=== PATIENT | female | born 1990 | race Caucasian/White ===

== ENCOUNTER → 2016-05-24 14:30 | Observation (INO) ==
--- NOTE | 2016-05-24 15:26 | OB/GYN Progress Note ---
Date of Encounter: 05/24/16 Time of Encounter: 15:30 - Assessment and Plan (1) First in adolescent 16 years of age or older in third trimester Current Visit: Yes Status: Acute (2) 39 weeks gestation of Current Visit: Yes Status: Acute (3) False labor after 37 completed weeks of gestation Current Visit: Yes Status: Acute Subjective - Subjective Interval history: Patient is a 26-year-old 1 para 0 at 39-2/7 weeks who presented to labor and delivery complaining of vaginal spotting and contractions. Patient having contractions for the past 24 hours stating getting more comfortable. Upon arrival to labor and delivery patient was having irregular contractions and was 1 cm. The patient was allowed to get up and ambulate was placed on the control and observe for couple hours. She made no additional significant cervical change was to 1 cm head was low and she was then but not enough to justify keeping for delivery. Recommendation was to allow the patient to try labor at home and was scheduled for an induction in 3 days. If patient's labor became more uncomfortable with contractions every 2-3 minutes leaking of fluid or bleeding like. She is to come back. Patient is okay with this and is willing to go home. Antepartum ROS: contractions Objective - Exam FHR: category 1 FHR comments: heart tones in 140s reactive contractions are irregular every 3-5 minutes Abdomen: Present: gravid Cervical dilation: 1 Cervix effacement: 80 station: -1
== END | disposition home or self-care (01) ==
LOC: 1NENULAB
PROVIDERS: ADMIT Obstetrics & Gynecology; ATTEND Obstetrics & Gynecology

== ENCOUNTER 2016-05-26 22:00 | Inpatient (IN) ==
[2016-05-26] MEDS ORDERED: Ringers Solution, Lactated 1,000 ML IVC SCH (23:30)
[2016-05-26] MEDS ORDERED: Famotidine 20 MG/2 ML VIAL IVP PRN (23:30)
[2016-05-26] MEDS ORDERED: Naloxone 0.4 MG/ML INJ IVP PRN (23:30)
[2016-05-26 23:32] LABS: Basophils % 0.2 %; Eosinophils % 0.3 %; Hematocrit 34.5 % (35.3-44.9); Hemoglobin 10.9 g/dL (11.5-15.4); Immature Granulocytes % 0.5 % (0-4); Lymphocytes # 2.3 K/mcL (0.6-4.6); Mean Corpuscular HGB Conc 31.6 g/dL (31.6-35.5); Mean Corpuscular Hemoglobin 25.8 pg (28.0-33.3); Mean Corpuscular Volume 81.6 fL (83.0-100.0); Mean Platelet Volume 11.7 fL (9.4-12.4); Monocytes # 0.6 K/mcL (0.0-1.3); Monocytes % 5.4 %; Neutrophils # 8.4 K/mcL (1.6-8.9); Platelet Count 233 K/mcL (140-400); Red Blood Count 4.23 M/mcL (3.82-4.97); Red Cell Distribution Width 16.7 % (11.5-14.5); Segmented Neutrophils % 73.6 %
[2016-05-26] MEDS ORDERED: Ringers Solution, Lactated 1,000 ML ONE (23:41)
[2016-05-27] MEDS ORDERED: miSOPROStol 25 MCG TABLET VG SCH
--- NOTE | 2016-05-27 00:21 | OB/GYN History & Physical ---
Date of Encounter: 05/27/16 Time of Encounter: 00:20 Assessment and Plan (1) Elective induction of labor planned Current visit: Yes Status: Acute We will induce with a Padron catheter and Cytotec plan is to anticipate vaginal delivery (2) 39 weeks gestation of Current visit: No Status: Acute (3) First in adolescent 16 years of age or older in third trimester Current visit: No Status: Acute History of Present Illness HPI: Ms. Jasso is a 26 year old female 1 para 0 at 39-5/7 weeks who presented for induction of labor. Patient's been having contractions and bloody show for the past few days. We decided that we bring the patient this evening for Padron induction with Cytotec. Patient does have a large for gestational age approximately 3 weeks. The baby weighed 3232 g which is 80th percentile. Patient was not doing anything a couple days ago and we sent her home to come back tonight. She denies any leaking of fluid still having some bloody show and still having good movement. She was GBS negative Rh- Past Med Surg Social Fam HX - Past Medical History Medical history: no medical history Psychiatric history: anxiety - Past Surgical History Surgical History: no surgical history - Social History Smoking Status: Never smoker Smokeless Tobacco Status: No Alcohol use: none Drug use: none Occupational status: employed Current living situation: Home - Independent Activity Level: Independent ambulation Recent Out of Country Travel Within the Last 8 Weeks: No Exposure or Possible Exposure to Illness During Travel: No - Family History Mother Age: 47 Living Status: Still Living Hx Family Cardiac Disorders: Yes (HTN) Hx Family Respiratory Disorders: No Hx Family Cancer: No Hx Family GI Disorders: No Hx Family Endocrine Disorder: No Hx Family Neuromuscular Disorders: No Hx Family Neurologic Disorders: No Hx Family HEENT Disorders: No Hx Family Autoimmune Disorders: No - Additional Family History Additional family history: Family history is noncontributory Obstetrical History - Pregnancies : 1 Para: 0 Medications and Allergies Allergies No Known Allergies Allergy (Verified 01/24/16 14:47) Review of System OB All systems PM: reviewed and no additional remarkable complaints except as stated Exam - Constitutional Constitutional: well developed, well nourished, no acute distress, average body habitus - HEENT HEENT: PERRL - Neck Neck exam: full ROM - Lungs Respiratory exam: CTAB - Cardiovascular Cardiovascular exam: RRR - Abdomen Abdomen: Present: gravid - Cervix Dilation: 1 Effacement: 80 Station: -1 (Padron catheter placed within the cervix 30 mL balloon inflated and then 25 g of Cytotec placed in the posterior fornix) - Comments Comments: heart tones in the 140s reactive no contraction seen Results Result Diagrams: 05/26/16 23:21 Abnormal lab results WBC 11.5 K/mcL (4.3-11.1) H 05/26/16 23:21 Hgb 10.9 g/dL (11.5-15.4) L 05/26/16 23:21 Hct 34.5 % (35.3-44.9) L 05/26/16 23:21 MCV 81.6 fL (83.0-100.0) L 05/26/16 23:21 MCH 25.8 pg (28.0-33.3) L 05/26/16 23:21 RDW 16.7 % (11.5-14.5) H 05/26/16 23:21 All other labs normal. - VTE Reasons for not Prescribing Prophylaxis: Treatment not Indicated - Low risk for VTE
[2016-05-27] MEDS ORDERED: *HR* Nalbuphine 20 MG/ML AMPUL ONE (02:33)
[2016-05-27] MEDS ORDERED: *HR* Nalbuphine 20 MG/ML AMPUL IVP PRN (02:36)
[2016-05-27] MEDS ORDERED: *HR* FentaNYL (PF) 100 MCG/2 ML VIAL EP ONE (10:48)
[2016-05-27] MEDS ORDERED: Bupivacaine-MPF 0.25% 10 ML VIAL EP ONE (10:48)
[2016-05-27] MEDS ORDERED: *HR* FentaNYL (PF) 100 MCG/2 ML VIAL ONE ×2 (10:52→20:36)
[2016-05-27] MEDS ORDERED: Bupivacaine-MPF 0.25% 10 ML VIAL ONE (10:52)
[2016-05-27] MEDS ORDERED: Epidural Premix (fent/bupiv) 110 ML EP SCH (11:00)
[2016-05-27] MEDS ORDERED: Epidural Premix (fent/bupiv) 110 ML EP ONE ×2 (11:58→18:01)
--- NOTE | 2016-05-27 14:31 | Anesthesia Evaluation PreOp ---
Date of Encounter: 05/27/16 Time of Encounter: 11:00 - Past History Planned Operation: epidural Cardiac History: Other (history of palpitations, holter monitor showed pvc, nsr today) Pulmonary History: Former smoker (quit with , 1 pk yr history) CARDBOARD INSERTER History: Denies Any Significant HX Other Medical History: GERD Anesthesia History: No Prior Anesthetic Complications (teeth pulled, right face tumor removed) : Yes Test: Positive Alcohol Use: none Drug use: none Medications and Allergies Allergies No Known Allergies Allergy (Verified 01/24/16 14:47) - Meds/Allergy Pre-op Review Medications Reviewed: Yes Allergies Reviewed: Yes Beta Blockers on Current Med List: No Anesthesia Results - Labs 05/26/16 23:21 Anesthesia Exam 3 Vital Signs Time 1100 BP 128/71 Pulse 78 Resp 16 O2 Sat Height: 68 Weight: 245 NPO (# of Hours): clears Pain Scale: 4 Pain Scale Used: Numeric (1 - 10) - HEENT Pupil (Motor): Pupils equal Mallampati: II Teeth: Normal Oral Opening: Greater than 3 - CARDBOARD INSERTER LOC: Oriented CARDBOARD INSERTER Motor: Normal RUE, Normal LUE, Normal RLE, Normal LLE, Normal Face CARDBOARD INSERTER Sensory: Normal: RUE, LUE, RLE, LLE, Face - Cardiac Rhythm: Regular Murmur: None JVD: No Carotid Bruit: No - Pulmonary Breath Sounds: bilateral Clear Respiratory Effort: Symmetrical Anesthesia Assess/Plan ASA Score: 2 Modified [place] Scale for Level of Consciousness: Cooperative, oriented, and tranquil Anesthetic Plan: Regional Monitoring Plan: Standard Monitors Recovery Plan: Other
--- NOTE | 2016-05-27 14:44 | Anesthesia Procedures ---
Date of Encounter: 05/27/16 Time of Encounter: 11:15 Procedures: Anesthesia - Epidural/Spinal Patient ID/Chart reviewed: Yes Patient examined: Yes OB Eval: Gestational age: 39 weeks 5 days OB Eval: : 1 OB Eval: Hx Para: 0 OB Eval: Dilated at (cm): 4 OB Eval: Contractions: Non-stressed pattern Consent Obtained: Yes Supplemental Oxygen: None/Room Air Site Prep: Aseptic Technique, Sterile prep and drape, Povidone-Iodine 1% Patient position: upright Local Anesthetic: Lidocaine 1% Amount of Local Anesthetic used: 7 Touhy Needle Gauge: 18 Touhy Needle Depth (cm): 8 Catheter Depth at Skin (cm): 15 Test Dose (1.5% Lido + Epi): Volume given (mls): 3 Test Dose Result: Negative Loading Dose: 0.25% Marcaine (mls): 6 Loading Dose: Fentanyl (mcg): 100 Loading Dose: Other: 4 ml saline Loading Dose Administered: Thru Catheter Infusion Med: 0.125% Bupivacaine w/ 2 mcg/ml Fentanyl Infusion Rate (mls/hr): [address]: Tegaderm, Tape Interspace Used: L3-L4 Loss of Resistance (TASHA): Yes (air) Blood: No CSF: No Paresthesia: No Procedure: 3 Vital Signs Time 1114 start 1124 1st cath 1133 2nd cath 1145 test 1152 bolus 1207 finish BP 128/81 118/75 121/83 123/80 133/58 120/66 Pulse 96 75 84 80 83 80 Resp 16 16 16 16 16 16 O2 Sat 100 100 100 100 100 100 patient placed sitting, monitors on, L4/l5 prepped with betadine, 1% lidocaine at skin 4 ml used, epidural needle advanced using tasha technique with air, epidural space encountered, 1124 cath threaded, blood present, removed, 1133 epidural needle placed again at same interspace, and advanced to epidural space , cath placed with blood present again, removed, L3/L4 interspace used, 1% lidocaine 3 ml used, epidural needle advanced using tasha technique, epidural space encountered at 8 cm, cath placed to 15 cm at skin, test dose was negative , bolus dose given in 4 increments over 10 minutes, vs stable, pump started at 15 ml per hour, patient comfortable.
--- NOTE | 2016-05-27 14:50 | OB Labor Progress Note ---
Date of Encounter: 05/27/16 Time of Encounter: 13:42 Labor Progress Note - Subjective Subjective: Pt comfortable with epidural - Cervix Cervix: 5/80/-1 - Heart Tones Heart Tones: Category I - [place]: irregular - Interventions Interventions: AROM for small amount clear fluid - Plan Plan: Continue to monitor. Will augment with pitocin if needed.
[2016-05-27] MEDS ORDERED: Oxytocin 20 units/ LR 1000 mL 20 UNIT/1,000 ML BAG IVC SCH (15:00)
--- NOTE | 2016-05-27 18:56 | OB Labor Progress Note ---
Date of Encounter: 05/27/16 Time of Encounter: 18:54 Labor Progress Note - Heart Tones Heart Tones: RNST - Interventions Interventions: IUPC placed - Plan Plan: Expect
[2016-05-27] MEDS ORDERED: Lidocaine/EPI 1:200k 2% PF 20 ML VIAL ONE (20:36)
[2016-05-27] MEDS ORDERED: Acetaminophen 325 MG TABLET PO PRN (20:50)
--- NOTE | 2016-05-27 21:04 | Anesthesia Progress Note ---
Date of Encounter: 05/27/16 Time of Encounter: 20:50 Anesthesia Note - Note Note: 05/27/16 21:04 3 Vital Signs Time 2049 2053 2057 BP 133/83 136/84 124/77 Pulse 88 88 86 Resp 16 16 16 O2 Sat 2049 patient complaining of right sided back pain, epidural level at t10 region at present, pump running at 15 ml per hour, bolus dose of 2% lidocaine with epi 5 ml given with 100 mcg fentanyl in 3 incremental doses.pain 2106 patient states pain is gone
[2016-05-27] MEDS ORDERED: Ampicillin 2 GM in 0.9 % Sodium Chloride Mini Bag 100 ML IVPB ONE (23:01)
--- NOTE | 2016-05-27 23:16 | OB Labor Progress Note ---
Date of Encounter: 05/27/16 Time of Encounter: 23:14 Labor Progress Note - Subjective Subjective: Pt comfortable with Epidrual. Feels some pressure. - Vital Signs Vital Signs: Temp 101.2, now 99.5 s/p Tylenol. - Cervix Cervix: 8/90/0to -1 - Heart Tones Heart Tones: 170's with fair BTVB and early decels. - [place]: uc's q 2 min - Plan Plan: Pt making progress, membranes ruptered at 13:42. She does have fever and c/o congestion. Can't really tell if abd is tender b/c of epidrual. D/w pt concern over possible chorio and will start Amp and Gent. Given progress will hold off on at this time unless condition would appear to deteriorate. Questions answered.
[2016-05-27] MEDS ORDERED: SODIUM CHLORIDE 0.9% IVPB SCH (23:45)
[2016-05-27] MEDS ORDERED: GENTAMICIN IVPB SCH (23:45)
[2016-05-28] MEDS ORDERED: Ampicillin 1,000 MG in 0.9 % Sodium Chloride Mini Bag 100 ML IVPB SCH
[2016-05-28] MEDS ORDERED: GENTAMICIN IVPB SCH
[2016-05-28] MEDS ORDERED: SODIUM CHLORIDE 0.9% IVPB SCH
[2016-05-28] MEDS ORDERED: Epidural Premix (fent/bupiv) 110 ML EP ONE (00:46)
[2016-05-28] MEDS ORDERED: Rho Immune Globulin 1,500 UNIT SYRINGE IM PRN (01:50)
[2016-05-28] MEDS ORDERED: Acetaminophen 325 MG TABLET PO PRN (01:50)
[2016-05-28] MEDS ORDERED: Measles/Mumps/Rubella Vacc 0.5 ML VIAL SQ PRN (01:50)
[2016-05-28] MEDS ORDERED: Oxytocin 20 units/ LR 1000 mL 20 UNIT/1,000 ML BAG IVC ONE (01:50)
--- NOTE | 2016-05-28 01:50 | OB/GYN Procedure Note ---
Delivery - Delivery Date: 05/28/16 Provider: Eduardo Cyr Intrapartum events: febrile- temp >100.3 Delivery induction: AROM Delivery monitor: external FHT, internal uterine Anesthesia: epidural Estimated Blood Loss: 200 - Infant (s) Infant A Infant Delivery Date: 05/28/16 Infant Delivery Time: 01:30 Presentation: vertex Position: ALEXIS Route of delivery: Gender: Male Viability: Viable Pounds: 8 Ounces: 8 at 1 minute: 8 at 5 mins: 9 Shoulder Dystocia: not encountered Specimens collected: cord blood Placenta: spontaneous Cord: 3 umbilical vessels - Repair Episiotomy: none Laceration Description: Perineal - 2nd Degree - Complications Delivery complications: none - Disposition Mom disposition: stable in LDR [place] disposition: stable in LDR - Comments Comments: Pt s/p of liveborn male without incident. Pt did receive Ampicllin and Gentamycin intrapartum of fever to 101.5
[2016-05-28] MEDS ORDERED: Oxytocin 20 units/ LR 1000 mL 20 UNIT/1,000 ML BAG IV SCH (02:00)
[2016-05-28] MEDS: Ibuprofen 600 MG TABLET PO PRN ×3 (04:19→19:49)
[2016-05-28 04:33] LABS: Basophils % 0.1 %; Hematocrit 30.4 % (35.3-44.9); Hemoglobin 9.6 g/dL (11.5-15.4); Immature Granulocytes % 0.7 % (0-4); Lymphocytes % 6.4 %; Mean Corpuscular HGB Conc 31.6 g/dL (31.6-35.5); Mean Corpuscular Hemoglobin 25.4 pg (28.0-33.3); Mean Corpuscular Volume 80.4 fL (83.0-100.0); Monocytes # 0.9 K/mcL (0.0-1.3); Neutrophils # 13.2 K/mcL (1.6-8.9); Platelet Count 192 K/mcL (140-400); Red Blood Count 3.78 M/mcL (3.82-4.97); Red Cell Distribution Width 16.6 % (11.5-14.5); Segmented Neutrophils % 86.8 %
[2016-05-28] MEDS: Prenatal Vit/FA 1 EACH TABLET PO SCH (08:34)
[2016-05-29] MEDS: Ibuprofen 600 MG TABLET PO PRN ×2 (06:38→20:31)
--- NOTE | 2016-05-29 08:22 | OB/GYN Progress Note ---
Date of Encounter: 05/29/16 Time of Encounter: 08:20 - Assessment and Plan (1) (spontaneous vaginal delivery) Current Visit: Yes Status: Acute patient meeting post day 1 milestones patient reports dizzy ambulation repeat CBC anticipate discharge home post day 2. (2) Normal breast feeding Current Visit: Yes Status: Acute Discharge home with breast pump (3) anemia Current Visit: Yes Status: Acute Hemoglobin 9.6, repeat CBC Subjective - Subjective Patient reports: appetite normal, dizzy ambulation, pain well controlled, nauseated [place]: doing well, nursing well Objective - Latest Vital Signs Latest vital signs: Vital Signs Temp Pulse Resp BP Pulse Ox 05/28/16 20:00 97.5 F L 92 16 119/76 98 05/28/16 16:35 18 05/28/16 09:16 97.6 F 74 16 106/73 05/28/16 08:30 14 Intake and Output 05/28/16 05/29/16 05/29/16 23:59 07:59 15:59 Intake Total 400 / 400 Balance 400 / 400 Intake: Oral 400 / 400 Other: # Urine Diapers 2 # Bowel Movements 1 Weight 109.769 kg Patient Weight 05/29/16 23:59 Weight 109.769 kg - Exam Lungs: bilateral: normal Chest: Normal S1, Normal S2 Extremities: Present: edema (1+, bilateral, no erythema) Abdomen: Present: soft Uterus: Present: firm. Absent: tenderness Uterus Position: 2 Fingers Below Umbilicus - Labs Labs: Laboratory Results - last 24 hr 05/28/16 02:19 Baby's Blood Type A RH NEGATIVE Mother's Blood Type A RH NEGATIVE Rhogam Indicated NO
[2016-05-29] MEDS: Prenatal Vit/FA 1 EACH TABLET PO SCH (08:39)
[2016-05-29 10:05] LABS: Basophils % 0.2 %; Eosinophils # 0.1 K/mcL (0.0-0.6); Eosinophils % 0.6 %; Hematocrit 27.9 % (35.3-44.9); Hemoglobin 8.9 g/dL (11.5-15.4); Immature Granulocytes % 0.6 % (0-4); Lymphocytes # 2.5 K/mcL (0.6-4.6); Lymphocytes % 21.3 %; Mean Corpuscular HGB Conc 31.9 g/dL (31.6-35.5); Mean Corpuscular Hemoglobin 26.6 pg (28.0-33.3); Mean Corpuscular Volume 83.5 fL (83.0-100.0); Mean Platelet Volume 11.4 fL (9.4-12.4); Monocytes # 0.6 K/mcL (0.0-1.3); Monocytes % 5.2 %; Neutrophils # 8.5 K/mcL (1.6-8.9); Platelet Count 182 K/mcL (140-400); Red Blood Count 3.34 M/mcL (3.82-4.97); Red Cell Distribution Width 17.2 % (11.5-14.5); Segmented Neutrophils % 72.1 %
[2016-05-30] MEDS: Prenatal Vit/FA 1 EACH TABLET PO SCH (08:07)
[2016-05-30] MEDS: Ibuprofen 600 MG TABLET PO PRN (08:07)
[2016-05-30 08:53] VITALS: BP 123/81
--- NOTE | 2016-05-30 09:07 | Discharge Summary ---
Date of Encounter: 05/30/16 Time of Encounter: 09:04 - Discharge Diagnosis (1) (spontaneous vaginal delivery) Priority: Primary Status: Acute (2) Normal breast feeding Priority: Secondary Status: Acute (3) anemia Priority: Secondary Status: Acute - Discharge Medications Prescriptions: Ibuprofen [Motrin] 600 mg PO Q6HR PRN #60 tablet PRN Reason: Mild Pain (1-3) Docusate [Colace] 100 mg PO BID #60 capsule Ferrous Sulfate 325 mg PO DAILY #30 tablet Home Medications: Breast Pump [BREAST PUMP] 1 each .ROUTE AD #1 each 05/30/16 [Rx] Docusate [Colace] 100 mg PO BID #60 capsule 05/30/16 [Rx] Ferrous Sulfate 325 mg PO DAILY #30 tablet 05/30/16 [Rx] Ibuprofen [Motrin] 600 mg PO Q6HR PRN #60 tablet 05/30/16 [Rx] Vit/FA 1 each PO DAILY tablet 05/30/16 [Rx] Allergies/Adverse Reactions: Allergies No Known Allergies Allergy (Verified 01/24/16 14:47) Data Procedures and tests throughout hospitalization: Laboratory Tests 05/26/16 05/28/16 05/28/16 23:21 02:19 04:04 WBC 11.5 H 15.3 H RBC 4.23 3.78 L Hgb 10.9 L 9.6 L Hct 34.5 L 30.4 L MCV 81.6 L 80.4 L MCH 25.8 L 25.4 L MCHC 31.6 31.6 RDW 16.7 H 16.6 H Plt Count 233 192 MPV 11.7 12.0 Immature Gran % 0.5 0.7 Seg Neutrophils % 73.6 86.8 Lymphocytes % 20.0 6.4 Monocytes % 5.4 6.0 Eosinophils % 0.3 0.0 Basophils % 0.2 0.1 Neutrophils # 8.4 13.2 H Lymphocytes # 2.3 1.0 Monocytes # 0.6 0.9 Eosinophils # 0.0 0.0 Basophils # 0.0 0.0 Baby's Blood Type A RH NEGATIVE Mother's Blood Type A RH NEGATIVE Rhogam Indicated NO 05/29/16 09:57 WBC 11.8 H RBC 3.34 L Hgb 8.9 L Hct 27.9 L MCV 83.5 MCH 26.6 L MCHC 31.9 RDW 17.2 H Plt Count 182 MPV 11.4 Immature Gran % 0.6 Seg Neutrophils % 72.1 Lymphocytes % 21.3 Monocytes % 5.2 Eosinophils % 0.6 Basophils % 0.2 Neutrophils # 8.5 Lymphocytes # 2.5 Monocytes # 0.6 Eosinophils # 0.1 Basophils # 0.0 Baby's Blood Type Mother's Blood Type Rhogam Indicated Labs on day of discharge: Labs from last 24 hours 05/29/16 09:57 WBC 11.8 H RBC 3.34 L Hgb 8.9 L Hct 27.9 L MCV 83.5 MCH 26.6 L MCHC 31.9 RDW 17.2 H Plt Count 182 MPV 11.4 Immature Gran % 0.6 Seg Neutrophils % 72.1 Lymphocytes % 21.3 Monocytes % 5.2 Eosinophils % 0.6 Basophils % 0.2 Neutrophils # 8.5 Lymphocytes # 2.5 Monocytes # 0.6 Eosinophils # 0.1 Basophils # 0.0 Date of admission: 05/26/16 22:00 Primary care physician: PCP [facility] Consults: 05/28/16 01:51 Consult to Online Journalist [CONS] Routine Comment: Vaginal delivery, consult needed Discharging clinician: Rebekah Ugarte Anticipated date of discharge: 05/30/16 - Patient Status Disposition: Home, Self-Care Condition: Good Functional capacity at discharge: independent ambulation Overall status at discharge: patient is progressing back to baseline - Discharge Instructions Follow Up With: [facility],PCP [Primary Care Provider] - Eduardo Cyr MD [Partnered Physician] - - Diet and Activity Activity: increase activity as tolerated Diet: advance to your usual diet Hospital Course Reason for admission: induction of labor Delivery: Episiotomy: none Laceration: 2nd degree Other procedures: none complications: none Discharge diagnosis: IUP at term delivered baby: male Hospital course: - Delivery Date: 05/28/16 Provider: Eduardo Cyr Intrapartum events: febrile- temp >100.3 Delivery induction: AROM Delivery monitor: external FHT, internal uterine Anesthesia: epidural Estimated Blood Loss: 200 - Infant (s) A Infant Delivery Date: 05/28/16 Delivery Time: 01:30 Presentation: vertex Position: ALEXIS Route of delivery: Gender: Male Viability: Viable Pounds: 8 Ounces: 8 at 1 minute: 8 at 5 mins: 9 Shoulder Dystocia: not encountered Specimens collected: cord blood Placenta: spontaneous Cord: 3 umbilical vessels - Repair Episiotomy: none Laceration Description: Perineal - 2nd Degree - Complications Delivery complications: none - Disposition Mom disposition: home PPD#1 [place] disposition: home with mother, Time Attestation: Total time spent providing and/or coordinating discharge services: Time Spent: Less than 30 minutes Exam - Constitutional Vitals: Temp Pulse Resp BP Pulse Ox 97.6 F 58 16 123/81 98 05/30/16 08:52 05/30/16 08:52 05/30/16 08:52 05/30/16 08:52 05/29/16 20:28 General appearance IM: A&O X 3, pleasant, no acute distress - Respiratory Respiratory exam: Present: CTAB - Cardiovascular Cardiovascular exam IM: Present: RRR, +S1, +S2 - GI/Abdominal GI/Abdominal exam IM: soft - Rectal Rectal exam: deferred - Uterine Tone: Firm Uterus Position: 1 Finger Below Umbilicus - Extremities Exam Extremities exam IM: Present: pedal edema (mild bilaterally) - Neurological Exam Neurological exam: normal gait, oriented X3 - Psychiatric Additional comments: reports good mood
== END 2016-05-30 13:00 | disposition home or self-care (01) | DRG 560 ==
LOC: 1NENULAB 22:00 → 1NENUOBS 05-28 03:32
PROVIDERS: ADMIT Obstetrics & Gynecology; ATTEND Obstetrics & Gynecology

== ENCOUNTER 2019-02-15 18:29 | Observation (INO) ==
[2019-02-15 19:23] LABS: Basophils % 0.5 %; Eosinophils # 0.1 K/mcL (0.0-0.6); Eosinophils % 0.9 %; Hemoglobin 13.9 g/dL (11.5-15.4); Immature Granulocytes % 0.5 % (0-4); Lymphocytes # 1.7 K/mcL (0.6-4.6); Lymphocytes % 19.5 %; Mean Corpuscular HGB Conc 32.3 g/dL (31.6-35.5); Mean Corpuscular Volume 89.6 fL (83.0-100.0); Mean Platelet Volume 10.1 fL (9.4-12.4); Monocytes # 0.7 K/mcL (0.0-1.3); Monocytes % 8.6 %; Platelet Count 286 K/mcL (140-400); Red Cell Distribution Width 12.8 % (11.5-14.5); White Blood Count 8.5 K/mcL (4.3-11.1)
[2019-02-15] MEDS ORDERED: Morphine Sulfate 2 MG/ML SYRINGE IVP ONE (19:34)
[2019-02-15] MEDS ORDERED: Ondansetron 4 MG/2 ML VIAL IVP ONE (19:35)
[2019-02-15] MEDS ORDERED: Isovue-370 500 ML BOTTLE IVP ONE (19:36)
[2019-02-15 19:44] LABS: Alanine Aminotransferase 26 Units/L (7-52); Albumin/Globulin Ratio 1.8 (1.1-2.2); Alkaline Phosphatase 48 Units/L (34-104); Amylase 24 Units/L (29-103); Aspartate Amino Transferase 18 Units/L (13-39); BUN/Creatinine Ratio 13 (6-26); Bilirubin,Indirect 0.4 mg/dL (0.0-1.0); Bilirubin,Total 0.4 mg/dL (0.3-1.0); Blood Urea Nitrogen 13 mg/dL (6-20); Calcium 9.7 mg/dL (8.6-10.3); Carbon Dioxide 25 mEq/L (23-29); Chloride 103 mEq/L (98-107); Globulin 2.8 g/dL (2.4-3.5); Glucose 102 mg/dL (70-105); Lipase 30 Units/L (11-82); Osmolality,Calculated 288 (280-300); Potassium 4.1 mEq/L (3.5-5.1); Sodium 139 mEq/L (136-145); Total Protein 7.8 g/dL (6.4-8.9); eGFR For African Americans > 60 (> 60); eGFR For Non-African Americans > 60 (> 60)
[2019-02-15 20:10] LABS: Bilirubin,Urine Negative (Negative); Blood,Urine Negative (Negative); Clarity,Urine Clear (Clear); Color,Urine Yellow (Yellow); Glucose,Urine (UA) Normal (Normal); Ketones,Urine Negative (Negative); Leukocyte Esterase,Urine Negative (Negative); Nitrite,Urine Negative (Negative); Protein,Urine Negative (Neg-Trace); Specific Gravity,Urine 1.015 (1.010-1.025); Urobilinogen,Urine Normal (Normal)
[2019-02-16] MEDS ORDERED: *HR* OxyCODONE/APAP 10/325 TABLET PO PRN (00:53)
[2019-02-16] MEDS ORDERED: 0.9 % Sodium Chloride 1,000 ML IVC SCH (01:00)
[2019-02-16] MEDS: Ondansetron 4 MG/2 ML VIAL IVP PRN ×2 (01:29→07:26)
[2019-02-16] MEDS: Piperacillin/Tazobactam 3.375 GM in 0.9 % Sodium Chloride Mini Bag 100 ML IVPB SCH ×3 (01:32→17:07)
[2019-02-16 06:01] LABS: Basophils % 0.2 %; Eosinophils % 0.5 %; Hematocrit 41.2 % (35.3-44.9); Immature Granulocytes % 0.4 % (0-4); Lymphocytes # 0.9 K/mcL (0.6-4.6); Lymphocytes % 11.5 %; Mean Corpuscular Hemoglobin 29.1 pg (28.0-33.3); Mean Corpuscular Volume 85.7 fL (83.0-100.0); Mean Platelet Volume 9.7 fL (9.4-12.4); Monocytes # 0.5 K/mcL (0.0-1.3); Monocytes % 6.7 %; Neutrophils # 6.5 K/mcL (1.6-8.9); Platelet Count 251 K/mcL (140-400); Red Blood Count 4.81 M/mcL (3.82-4.97); Red Cell Distribution Width 13.1 % (11.5-14.5); Segmented Neutrophils % 80.7 %
[2019-02-16 15:29] VITALS: BP 116/80
[2019-02-16] MEDS ORDERED: Bupivacaine/EPI 1:200k 0.5%PF 30 ML VIAL ONE (15:45)
== END 2019-02-16 17:07 | disposition left against medical advice (07) ==
LOC: 3ANU 18:29 → EMEROOARM 18:29 → 3ANU 02-16 01:06
PROVIDERS: ADMIT Surgery; ATTEND Surgery